=== PATIENT | female | born 1985 | race Caucasian/White ===

== ENCOUNTER → 2016-12-06 | Outpatient (CLI) | payer BC ==
[~2016-12-06] MED LIST: LEVO25TA5 PO; LEVO50TA PO; MECL1TAB42 PO; PRENTAB26 PO
== END | disposition home or self-care (01) ==
LOC: C.PAPS 10:32
PROVIDERS: ATTEND Obstetrics & Gynecology
DX: Z01.419 Encounter for gynecological examination (general) (routine) without abnormal findings (principal); Z87.42 Personal history of other diseases of the female genital tract

== ENCOUNTER 2017-05-26 19:25 | Emergency (ER) | payer BC ==
[~2017-05-26] VITALS: Ht 157.5 cm; Wt 57.3 kg
[~2017-05-26 19:25] MED LIST changes: -MECL1TAB42 PO
[2017-05-26 19:51] VITALS: TEMP 36.8
[2017-05-26] MEDS ORDERED: SODIUM CHLORIDE 0.9% 1000ML 1,000 ML IV SCH (21:01)
[2017-05-26 21:08] VITALS: Ht 157.5 cm; Wt 57.3 kg
[2017-05-26 21:14] VITALS: O2SAT 100
[2017-05-26 21:31] LABS: BLOOD UREA NITROGEN 13 mg/dl (7-18); BUN/CREATININE RATIO 17.4 (10-20); CALCIUM 9.4 mg/dl (8.5-10.1); CARBON DIOXIDE 29 mmol/L (21-32); CHLORIDE 105 mmol/L (98-107); CREATININE 0.73 mg/dl (0.60-1.20); GLUCOSE 72 mg/dl (70-99); SODIUM 139 mmol/L (136-145)
[2017-05-26] MEDS ORDERED: LEVO25TA5 PO ×2 (21:33)
[2017-05-26 21:43] LABS: BASO % 0.3 %; BASO ABS # 0.03 K/uL (0-0.2); COMPLETE YES; EOS % 3.5 %; HEMATOCRIT 40.6 % (37-47); IG% 0.1 %; LYMPH % 42.5 %; LYMPH ABS # 3.74 K/uL (1.2-3.4); MEAN CELL VOLUME 88.8 fL (80-100); MEAN CORPUSCULAR HEMOGLOBIN 28.9 pg (25-34); MEAN CORPUSCULAR HGB CONC 32.5 g/dl (32-36); MEAN PLATELET VOLUME 9.2 fL (7.4-10.4); MONO % 5.3 %; NEUT % 48.3 %; PLATELET COUNT 349 K/uL (130-400); RED BLOOD COUNT 4.57 M/uL (4.2-5.4); WHITE BLOOD COUNT 8.81 K/uL (4.8-10.8)
[2017-05-26 22:11] LABS: BENZODIAZEPINE, URINE NEG (NEG); COCAINE,URINE NEG (NEG); PHENCYCLIDINE, URINE NEG (NEG)
[2017-05-26 22:15] LABS: INR 1.1 (0.9-1.1); PARTIAL THROMBOPLASTIN RATIO 1.1; PROTHROMBIN TIME (PATIENT) 11.3 SECONDS (9.0-12.0)
[2017-05-26] MEDS ORDERED: GADAVIST IV PRN (23:05)
--- NOTE | 2017-05-26 23:07 | DIAGNOSTIC IMAGING REPORT ---
MRA HEAD WITHOUT CONTRAST CLINICAL HISTORY: 31 years-old Female presenting with dizziness, tingling on the left side, started at 12:30 PM, historically intermittent, no recent injury. TECHNIQUE: MR angiography of the head was performed without the use of intravenous contrast using 3-D [id number]-[id number] technique. 3-D volumetric and/or maximum intensity projection (MIP) images were subsequently reconstructed for review. IV contrast: None. COMPARISON: None. FINDINGS: Anterior circulation demonstrates patent intracranial portions of the internal carotid arteries. Anterior and middle cerebral arteries patent. Anterior communicating artery patent. Posterior circulation demonstrates codominant vertebral arteries, which contribute to the patent basilar artery. Bilateral superior cerebellar and posterior cerebral arteries patent. Prominent left posterior communicating artery with near origin of the left posterior cerebral artery. Hypoplastic right posterior communicating artery. No evidence of significant stenosis, aneurysm, or focal vessel occlusion. IMPRESSION: 1. No significant stenosis, aneurysm, or focal vessel occlusion. Electronically signed by: Matt Renner M.D. 05/26/2017 11:05 PM Dictated Date/Time: 05/26/2017 11:02 PM
[2017-05-26] MEDS ORDERED: MECLIZINE HCL 25 MG TAB PO STA (23:55)
[2017-05-27] MEDS ORDERED: MECL1TAB42 PO (00:23)
[2017-05-27 00:32] VITALS: BP 106/68; PULSE 81; O2SAT 98
--- NOTE | 2017-05-27 00:53 | EMERGENCY ROOM VISIT NOTE ---
History Report prepared by Balta: Jaimie Roberson Under the Supervision of: Dr. Stanford Richards M.D. First contact with patient: 20:51 Chief Complaint: OTHER COMPLAINT Stated Complaint: FLEETING TINGLING,NUMBNESS WHEN STANDING History of Present Illness The patient is a 31 year old female who presents to the Emergency Room with complaints of intermittent episodes of numbness starting nine hours ago. The patient states that she was at her son's friend's birthday libertarian when she noticed she would get flashes of dizziness. She states that it felt similar to vertigo. She states that it would pulse multiple times in a minute. She noticed they were less frequent when she sat down and worse with standing and walking. The patient notes that later in the afternoon she noticed it was starting to have numbness and tingling associated with it. She states that it appeared to be in her left leg, arm, and head only. She notes that her symptoms have not been as bad since getting here, but states that she experienced 2-3 episodes while walking back from the from the waiting room. She notes that these episodes were not as intense. She denies ever having this before. She denies noticing if her face was ever tingling. The patient denies chest pain, shortness of breath, and loss of consciousness. She reports that her last was April 21, 2015. She denies having any symptoms sitting here currently. She denies fevers, headaches, and being sick recently. Source of History: patient Onset: nine hours ago Position: other (global) Quality: tingling, numbness, other (dizziness) Timing: intermittent Modifying Factors (Worsening): movement Modifying Factors (Relieving): rest Associated Symptoms: No LOC, No fevers, No headache, No chest pain, No SOB Note: The patient denies being sick recently. Review of Systems See HPI for pertinent positives & negatives. A total of 10 systems reviewed and were otherwise negative. Past Medical & Surgical Medical Problems: (1) Hypothyroidism Family History Patient reports no known family medical history. Social History Smoking Status: Never Smoker Drug Use: none Marital Status: Housing Status: lives with family Occupation Status: employed Current/Historical Medications Scheduled Levothyroxine Sodium (Levothyroxine Sodium), 25 MCG PO 5XWK Levothyroxine Sodium (Levothyroxine Sodium), 50 MG PO 2XWK Scheduled PRN Meclizine Hcl (Meclizine Hcl), 1 TAB PO Q8 PRN for vertigo Allergies Coded Allergies: Minocycline (Verified Allergy, Mild, RASH, 04/21/15) Physical Exam Vital Signs Date Time Temp Pulse Resp B/P (MAP) Pulse Ox O2 Delivery O2 Flow Rate FiO2 05/27/17 00:32 81 18 106/68 98 Room Air 05/26/17 23:30 87 16 105/71 98 Room Air 05/26/17 21:42 86 05/26/17 21:14 100 Room Air 05/26/17 21:01 83 18 115/78 100 Room Air 05/26/17 19:51 36.8 85 16 122/87 100 Room Air Physical Exam Constitutional: Vital signs reviewed. Eyes: Pupils are equal round reactive to light. Conjunctiva are noninjected. ENT: Pharynx is clear without erythema or exudate. Mucous membranes are moist. Neck supple without meningeal signs. Respiratory: Clear to auscultation bilaterally. Breath sounds are equal bilaterally. Cardiovascular: Regular rate and rhythm. No rubs or gallops. GI: Soft, nondistended and nontender. Bowel sounds are present. Musculoskeletal: No peripheral edema. No lower extremity tenderness. Integumentary: No cyanosis. Neurological: The patient is awake and alert. Cranial nerves II-XII are intact. Motor is 5 out of 5 all extremities. Sensation is intact to light touch all extremities, except dysesthesia to the volar ulnar aspect of the left arm and trunk. Normal speech. No pronator drift. Psychiatric: Normal affect. Medical Decision & Procedures ER Provider Diagnostic Interpretation: Radiology results as stated below per my review and the radiologist's interpretation: MRA HEAD WITHOUT CONTRAST CLINICAL HISTORY: 31 years-old Female presenting with dizziness, tingling on the left side, started at 12:30 PM, historically intermittent, no recent injury. TECHNIQUE: MR angiography of the head was performed without the use of intravenous contrast using 3-D [id number] technique. 3-D volumetric and/or maximum intensity projection (MIP) images were subsequently reconstructed for review. IV contrast: None. COMPARISON: None. FINDINGS: Anterior circulation demonstrates patent intracranial portions of the internal carotid arteries. Anterior and middle cerebral arteries patent. Anterior communicating artery patent. Posterior circulation demonstrates codominant vertebral arteries, which contribute to the patent basilar artery. Bilateral superior cerebellar and posterior cerebral arteries patent. Prominent left posterior communicating artery with near origin of the left posterior cerebral artery. Hypoplastic right posterior communicating artery. No evidence of significant stenosis, aneurysm, or focal vessel occlusion. IMPRESSION: 1. No significant stenosis, aneurysm, or focal vessel occlusion. Electronically signed by: Matt Renner M.D. 05/26/2017 11:05 PM Dictated Date/Time: 05/26/2017 11:02 PM MRI HEAD : No evidence of acute infarct. No ICH, mass effect or edema. No abnormal enhancement on the brain parenchyma. Paranasal sinus disease. Radiologist: Juan Bee MD Study ready at 23:33 and initial results transmitted at 23:46. MRA NECK: No evidence of dissection or hemodynamically significant stenosis. Radiologist: Juan Bee MD Study ready at 23:39 and initial results transmitted at 23:49. Laboratory Results 05/26/17 21:00 Red Blood Count 4.57, Mean Corpuscular Volume 88.8, Mean Corpuscular Hemoglobin 28.9, Mean Corpuscular Hemoglobin Concent 32.5, Mean Platelet Volume 9.2, Neutrophils (%) (Auto) 48.3, Lymphocytes (%) (Auto) 42.5, Monocytes (%) (Auto) 5.3, Eosinophils (%) (Auto) 3.5, Basophils (%) (Auto) 0.3, Neutrophils # (Auto) 4.25, Lymphocytes # (Auto) 3.74, Monocytes # (Auto) 0.47, Eosinophils # (Auto) 0.31, Basophils # (Auto) 0.03 05/26/17 21:00 05/26/17 21:37 Test 05/26/17 21:00 05/26/17 21:29 05/26/17 21:42 05/26/17 21:55 White Blood Count 8.81 K/uL (4.8-10.8) Red Blood Count 4.57 M/uL (4.2-5.4) Hemoglobin 13.2 g/dL (12.0-16.0) Hematocrit 40.6 % (37-47) Mean Corpuscular Volume 88.8 fL (80-100) Mean Corpuscular Hemoglobin 28.9 pg (25-34) Mean Corpuscular Hemoglobin Concent 32.5 g/dl (32-36) Platelet Count 349 K/uL (130-400) Mean Platelet Volume 9.2 fL (7.4-10.4) Neutrophils (%) (Auto) 48.3 % Lymphocytes (%) (Auto) 42.5 % Monocytes (%) (Auto) 5.3 % Eosinophils (%) (Auto) 3.5 % Basophils (%) (Auto) 0.3 % Neutrophils # (Auto) 4.25 K/uL (1.4-6.5) Lymphocytes # (Auto) 3.74 K/uL (1.2-3.4) Monocytes # (Auto) 0.47 K/uL (0.11-0.59) Eosinophils # (Auto) 0.31 K/uL (0-0.5) Basophils # (Auto) 0.03 K/uL (0-0.2) RDW Standard Deviation 42.7 fL (36.4-46.3) RDW Coefficient of Variation 13.2 % (11.5-14.5) Immature Granulocyte % (Auto) 0.1 % Immature Granulocyte # (Auto) 0.01 K/uL (0.00-0.02) Urine Test NEG (NEG) Anion Gap 5.0 mmol/L (3-11) Est Creatinine Clear Calc Drug Dose 86.7 ml/min Estimated GFR () 125.4 Estimated GFR (Non- 108.2 BUN/Creatinine Ratio 17.4 (10-20) Calcium Level 9.4 mg/dl (8.5-10.1) Troponin I < 0.015 ng/ml (0-0.045) Bedside Glucose 81 mg/dl (70-90) Urine Opiates Screen NEG (NEG) Urine Methadone, Qualitative NEG (NEG) Urine Barbiturates NEG (NEG) Urine Phencyclidine (PCP) Level NEG (NEG) Ur Amphetamine/Methamphetamine NEG (NEG) MDMA (Ecstasy) Screen NEG (NEG) Urine Benzodiazepines Screen NEG (NEG) Urine Cocaine Metabolite NEG (NEG) Urine Marijuana (THC) NEG (NEG) Prothrombin Time 11.3 SECONDS (9.0-12.0) Prothromb Time International Ratio 1.1 (0.9-1.1) Activated Partial Thromboplast Time 27.7 SECONDS (21.0-31.0) Partial Thromboplastin Ratio 1.1 Laboratory results as reviewed by me. Medications Administered Medications (Trade) Dose Ordered Sig/Lyssa Route Start Time Stop Time Status Last Admin Dose Admin Sodium Chloride 1,000 ml @ 50 mls/hr Q20H IV 05/26/17 21:01 06/25/17 21:00 05/26/17 21:01 50 MLS/HR Meclizine HCl (Antivert Tab) 25 mg NOW STAT PO 05/26/17 23:55 05/26/17 23:56 DC 05/27/17 00:10 25 MG ECG Indication: weakness Rate (beats per minute): 72 Rhythm: normal sinus Findings: T-wave inversion (V1 and V2), no ectopy ED Course 2052: The patient was evaluated in room B12B. A complete history and physical exam was performed. 2100: Ordered NSS 1000 ml @ 50 mls/hr IV. 2351: I reevaluated the patient and she currently has no symptoms. Her numbness is gone and has no vertigo. 2354: Ordered Antivert Tab 25 mg PO. 3: Upon reevaluation, the patient appeared to have improvement of her symptoms. I discussed christineight's findings with the patient. She verbalized agreement of the treatment plan. The patient was discharged home. Medical Decision this is a 31-year-old female presents with vertigo and numbness to the left side of her body. Differential diagnosis includes demyelinating disease, intracranial mass, intracranial hemorrhage, CVA, metabolic derangement, paresthesias, atypical migraine. I did perform a limited focused review of portions of the patient's old chart on the electronic medical record. The patient has had no recent pertinent visits to this hospital. The patient is normotensive. I did evaluate the patient as noted above. The patient is presenting with intermittent vertigo with episodes of paresthesias to her left side of her body. On my examination she does have some dysesthesia to the left arm and trunk. She is otherwise neurologically intact. IV access was established. I did order and personally review the patient's 12-lead EKG as described above. I did order and review the patient's blood work as noted in the electronic medical record. I did order MRI of the head and neck and MRI of the brain. I did review the images myself as well as the radiology report as described above. There is no evidence of acute abnormality. I did reassess the patient. I did discuss the test results with the patient. Currently she has no symptoms. She has no paresthesias, numbness or vertigo. I did treat her with meclizine and discharge her home with a prescription for meclizine. She was advised to follow closely with her doctor for referral to neurology. She was given return instructions as outlined below. Medication Reconcilliation Current Medication List: was personally reviewed by me Blood Pressure Screening Patient's blood pressure: Normal blood pressure Blood pressure disposition: Did not require urgent referral Impression Primary Impression: Left sided numbness Additional Impression: Vertigo Scribe Attestation The scribe's documentation has been prepared under my direct and personally reviewed by me in its entirety. I confirm that the note above accurately reflects all work, treatment, procedures, and medical decision making performed by me. Departure Information Dispostion Home / Self-Care Prescriptions Meclizine Hcl (MECLIZINE HCL) 25 Mg Tab 1 TAB PO Q8 Y for vertigo, #20 TAB Prov: Stanford Richards M.D. 05/27/17 Referrals Juan Miguel McneillD.OBenito (PCP) Forms HOME CARE DOCUMENTATION FORM, IMPORTANT VISIT INFORMATION, WORK / SCHOOL INSTRUCTIONS Patient Instructions My [facility] Additional Instructions You have been examined and treated today on an emergency basis only. This is not a substitute for, or an effort to provide, complete comprehensive medical care. It is impossible to recognize and treat all injuries or illnesses in a single emergency department visit. It is therefore important that you follow up closely with your physician. Call as soon as possible for an appointment. Return for worsening symptoms or if you develop fever, weakness on one side of your body, difficulties with your speech or walking, or any other concerning symptoms. Problem Qualifiers
--- NOTE | 2017-05-27 06:30 | DIAGNOSTIC IMAGING REPORT ---
MRA OF THE NECK WITH AND WITHOUT CONTRAST CLINICAL HISTORY: Vertigo. Numbness. Tingling. COMPARISON STUDY: None. TECHNIQUE: Unenhanced and contrast-enhanced MRA of the neck was performed. Injection of 5.7 mL of Gadavist IV was uneventful. NASCET criteria were utilized to estimate the degree of carotid stenosis. FINDINGS: The bilateral common carotid, internal carotid and vertebral arteries are patent. No stenosis or dissection is identified within these vessels. The right vertebral artery is suboptimally assessed on this exam due to artifact. The left vertebral artery is dominant and patent. IMPRESSION: Unremarkable MRA of the neck. Electronically signed by: Atif Stoddard M.D. 05/27/2017 6:28 AM Dictated Date/Time: 05/27/2017 6:24 AM
--- NOTE | 2017-05-27 06:38 | DIAGNOSTIC IMAGING REPORT ---
MRI OF THE BRAIN WITHOUT AND WITH IV CONTRAST CLINICAL HISTORY: Dizziness, left-sided tingling. Possible stroke. COMPARISON STUDY: No previous studies for comparison. TECHNIQUE: MRI of the brain was performed from the vertex to the skull base utilizing various T1 and T2 weighted sequences. Following the IV administration of 5.7 mL of Gadavist contrast, additional enhanced images were obtained. FINDINGS: Sagittal T1, axial diffusion, proton density and T2 weighted axial, coronal FLAIR, and pre and post axial T1-weighted images were acquired. These were supplemented with post gadolinium coronal T1 weighted images. No intra or extra-axial mass lesions are visualized. Axial diffusion-weighted images reveal no evidence of acute or subacute infarction. There is no evidence of ventricular dilatation. Proton density T2-weighted and FLAIR images reveal no significant brachial signal abnormalities. There are no abnormal flow voids. There is no evidence of pathologic enhancement. There is mucosal thickening within the paranasal sinuses, most pronounced involving the frontal sinuses. IMPRESSION: Minor inflammatory changes within the paranasal sinuses. Otherwise normal MRI of the brain Electronically signed by: Patrick Felton M.D. 05/27/2017 6:37 AM Dictated Date/Time: 05/27/2017 6:35 AM
== END 2017-05-27 00:33 | disposition home or self-care (01) ==
LOC: C.EDB 19:28
DX: R20.0 Anesthesia of skin (principal); R42 Dizziness and giddiness; E03.9 Hypothyroidism, unspecified; Z79.899 Other long term (current) drug therapy

== ENCOUNTER → 2017-07-05 | Outpatient (CLI) | payer BC ==
[~2017-07-05] MED LIST changes: -LEVO50TA PO; +MECL1TAB42 PO; -PRENTAB26 PO
== END | disposition home or self-care (01) ==
LOC: C.LAB1850 12:02
PROVIDERS: ATTEND Obstetrics & Gynecology
DX: R68.82 Decreased libido (principal)

== ENCOUNTER → 2017-12-11 | Outpatient (CLI) | payer OTHER ==
[~2017-12-11] MED LIST changes: -MECL1TAB42 PO
== END | disposition home or self-care (01) ==
LOC: C.PAPS 16:27
PROVIDERS: ATTEND Obstetrics & Gynecology
DX: Z01.419 Encounter for gynecological examination (general) (routine) without abnormal findings (principal)